=== PATIENT | female | born 1955 | race Caucasian/White ===

== ENCOUNTER 2017-03-24 22:20 | Observation (INO) | payer BC ==
[~2017-03-24] VITALS: Ht 167.6 cm; Wt 80.5 kg
[~2017-03-24 22:20] MED LIST: ASCO500C PO; CALC1TAB PO; ESTR1TAB15 PO; FISH1CAP PO; GARL5000 PO; LOSA1TAB17 PO; MULT-177 PO; SIMV20TA3 PO
[2017-03-24] MEDS ORDERED: ONDANSETRON PF 4 MG/2 ML VIAL. IV ONE (23:00)
[2017-03-24] MEDS ORDERED: IV NORMAL SALINE 1000ML BAG 1,000 ML IV ONE (23:00)
[2017-03-24 23:11] LABS: BASO % 0 % (0-3); EOS % 0 % (0-3); HEMATOCRIT 32.6 % (36.0-47.0); HEMOGLOBIN 11.4 g/dL (12.0-15.5); LYMPH # 1.2 x10^3/uL (1.0-4.8); LYMPH % 12 % (24-48); MEAN CORPUSCULAR HEMOGLOBIN 31 pg (25-35); MEAN CORPUSCULAR HGB CONC 35 g/dL (31-37); MEAN CORPUSCULAR VOLUME 89 fL (79-100); MONO % 1 % (0-9); NEUT % 86 % (31-73); PLATELET COUNT 217 x10^3/uL (140-400); RED BLOOD COUNT 3.65 x10^6/uL (3.50-5.40); RED CELL DISTRIBUTION WIDTH 12.6 % (11.5-14.5); WHITE BLOOD COUNT 9.5 x10^3/uL (4.0-11.0)
[2017-03-24 23:29] LABS: ALBUMIN 3.2 g/dL (3.4-5.0); ALBUMIN/GLOBULIN RATIO 1.1 (1.0-1.7); CALCIUM 8.3 mg/dL (8.5-10.1); CREATININE 0.6 mg/dL (0.6-1.0); GFR 101.3; TOTAL BILIRUBIN 0.5 mg/dL (0.2-1.0); TOTAL PROTEIN 6.2 g/dL (6.4-8.2)
[2017-03-24 23:40] LABS: % BASOS 1 % (0-3); PLT ESTIMATE ADEQUATE (ADEQUATE)
--- NOTE | 2017-03-25 00:07 | PHYS DOC ---
Past Medical History Past Medical History: Arthritis, Diverticulitis, Hypertension, Other Additional Past Medical Histor: High cholesterol, breast cancer Past Surgical History: No Surgical History Alcohol Use: None Drug Use: None Adult General Chief Complaint Chief Complaint: ALTERED MENTAL STATUS HPI HPI Patient is a 61 year old female with history significant for hypertension and breast cancer status post mastectomy on February 05 and is currently on chemotherapy who presents here today secondary to generalized weakness and confusion. Patient has any fevers shakes chills nausea vomiting diarrhea cough cold Raynaud 's abdominal pain or chest pain. Patient reports decreased urinary output. Patient reports her last by mouth intake was approximately 7 PM she reports that she's been drinking a lot with any difficulty. Review of systems Constitutional: Denies fever or chills [] Eyes: Denies change in visual acuity, redness, or eye pain [] All other review systems are negative except as documented in the history of present illness portion. Physical exam Constitutional: Well developed, well nourished, no acute distress, non-toxic appearance. [] HENT: Normocephalic, atraumatic, bilateral external ears normal, oropharynx moist, no oral exudates, nose normal. [] Eyes: conjunctiva normal, no discharge. [] Neck: Normal range of motion, no tenderness, supple, no stridor. [] Cardiovascular:Heart rate regular rhythm, Lungs & Thorax: Bilateral breath sounds clear to auscultation [] Abdomen: Bowel sounds normal, soft, no tenderness, no masses, no pulsatile masses. [] Skin: Warm, dry, Back: No tenderness, Extremities: No tenderness, no cyanosis, Neurologic: Alert and oriented X 3, normal motor function, normal sensory function, no focal deficits noted. [] Psychologic: Affect normal, judgement normal, mood normal. [] Patient's ER workup is significant for sodium of 119, potassium 2.9. In the ED with normal saline 2 L. Assessment and plan This 1-year-old female who presents here today secondary to dehydration and generalized weakness. Patient is hyponatremic with a sodium of 119. A potassium 2.9. I discussed the case with Dr. Combs and he requested that we admit her as an observation for hydration and supplementation of her potassium. Current Medications Current Medications Current Medications Medications (Trade) Dose Ordered Sig/Quirino Start Time Stop Time Status Last Admin Dose Admin Ondansetron HCl (Zofran) 4 mg 1X ONCE 03/24/17 23:00 03/24/17 23:01 DC 03/24/17 23:06 4 MG Potassium Chloride (Klor-Con) 40 meq 1X ONCE 03/25/17 00:15 03/25/17 00:16 Sodium Chloride 1,000 ml @ 1,000 mls/hr 1X ONCE 03/25/17 00:15 03/25/17 01:14 Allergies Allergies Allergies Coded Allergies Type Severity Reaction Last Updated Verified Penicillins Allergy Intermediate hives 10/23/14 No Sulfa (Sulfonamide Antibiotics) Allergy Intermediate hives 10/23/14 No cephalexin Allergy Intermediate hives 10/23/14 No Uncoded Allergies Type Severity Reaction Last Updated Verified macrod Allergy Intermediate hives 10/23/14 Current Patient Data Vital Signs Vital Signs Date Time Temp Pulse Resp B/P (MAP) Pulse Ox O2 Delivery O2 Flow Rate FiO2 03/24/17 23:55 75 27 152/64 (93) 99 Room Air 03/24/17 22:33 97.8 97.8 Lab Values Laboratory Tests Test 03/24/17 22:55 White Blood Count 9.5 x10^3/uL (4.0-11.0) Red Blood Count 3.65 x10^6/uL (3.50-5.40) Hemoglobin 11.4 g/dL (12.0-15.5) L Hematocrit 32.6 % (36.0-47.0) L Mean Corpuscular Volume 89 fL (79-100) Mean Corpuscular Hemoglobin 31 pg (25-35) Mean Corpuscular Hemoglobin Concent 35 g/dL (31-37) Red Cell Distribution Width 12.6 % (11.5-14.5) Platelet Count 217 x10^3/uL (140-400) Neutrophils (%) (Auto) 86 % (31-73) H Lymphocytes (%) (Auto) 12 % (24-48) L Monocytes (%) (Auto) 1 % (0-9) Eosinophils (%) (Auto) 0 % (0-3) Basophils (%) (Auto) 0 % (0-3) Neutrophils # (Auto) 8.2 x10^3uL (1.8-7.7) H Lymphocytes # (Auto) 1.2 x10^3/uL (1.0-4.8) Monocytes # (Auto) 0.1 x10^3/uL (0.0-1.1) Eosinophils # (Auto) 0.0 x10^3/uL (0.0-0.7) Basophils # (Auto) 0.0 x10^3/uL (0.0-0.2) Segmented Neutrophils % 74 % (35-66) H Band Neutrophils % 6 % (0-9) Lymphocytes % 19 % (24-48) L Basophils % 1 % (0-3) Platelet Estimate Adequate (ADEQUATE) Sodium Level 119 mmol/L (136-145) *L Potassium Level 3.0 mmol/L (3.5-5.1) L Chloride Level 84 mmol/L (98-107) L Carbon Dioxide Level 26 mmol/L (21-32) Anion Gap 9 (6-14) Blood Urea Nitrogen 4 mg/dL (7-20) L Creatinine 0.6 mg/dL (0.6-1.0) Estimated GFR (Cockcroft-Gault) 101.3 BUN/Creatinine Ratio 7 (6-20) Glucose Level 163 mg/dL (70-99) H Calcium Level 8.3 mg/dL (8.5-10.1) L Total Bilirubin 0.5 mg/dL (0.2-1.0) Aspartate Amino Transferase (AST) 15 U/L (15-37) Alanine Aminotransferase (ALT) 18 U/L (14-59) Alkaline Phosphatase 90 U/L (46-116) Total Protein 6.2 g/dL (6.4-8.2) L Albumin 3.2 g/dL (3.4-5.0) L Albumin/Globulin Ratio 1.1 (1.0-1.7) Lipase 69 U/L (73-393) L Laboratory Tests 03/24/17 22:55 Laboratory Tests 03/24/17 22:55 EKG EKG [] Radiology/Procedures Radiology/Procedures [] Course & Med Decision Making Course & Med Decision Making Pertinent Labs and Imaging studies reviewed. (See chart for details) [] Dragon Disclaimer Dragon Disclaimer This electronic medical record was generated, in whole or in part, using a voice recognition dictation system. Departure Departure Impression: Primary Impression: Hypokalemia Additional Impression: Hyponatremia Disposition: ADMITTED INPATIENT Admitting Physician: Surjit Stevens Condition: STABLE Referrals: UNKNOWN PCP NAME (PCP) Problem Qualifiers NIKOS JOHNSTON MD Mar 25, 2017 00:07
[2017-03-25] MEDS ORDERED: ONDANSETRON PF 4 MG/2 ML VIAL. IV PRN (00:15)
[2017-03-25] MEDS ORDERED: POTASSIUM CHLORIDE 20 MEQ TABLET.ER. PO ONE (00:15)
[2017-03-25] MEDS ORDERED: IV NORMAL SALINE 1000ML BAG 1,000 ML IV ONE (00:15)
[2017-03-25] MEDS ORDERED: MORPHINE SULFATE 4 MG/ML DISP.SYRIN. IV PRN (00:15)
[2017-03-25 01:22] LABS: BILIRUBIN,URINE NEGATIVE (NEG); GLUCOSE,URINE NEGATIVE (NEG); NITRITE,URINE NEGATIVE (NEG); PH,URINE 6.5; PROTEIN,URINE NEGATIVE (NEG-TRACE); UROBILINOGEN,URINE 0.2 mg/dL (0.2 mg/dL)
[2017-03-25 01:51] LABS: BACTERIA,URINE 0 /HPF (0-FEW); RBC,URINE OCC /HPF (0-2); SQUAMOUS EPITHELIAL CELL,UR OCC /LPF; WBC,URINE OCC /HPF (0-4)
[2017-03-25 02:30] VITALS: BP 147/56
[2017-03-25 03:00] VITALS: BP 142/58
--- NOTE | 2017-03-25 03:54 | ACF ---
Admission Forms Criteria HYPONATREMIA; HYPERNATREMIA; HYPOKALEMIA; HYPERKALEMIA; HYPOCALCEMIA; HYPERCALCEMIA Clinical Indications for Inpatient Care (Place 'X' for any and all applicable criteria): Ongoing inpatient care may be indicated for ANY ONE of the following [G](1)(2)(3 )(5): [X]I. Hyponatremia with ANY ONE of the following: [X]a) Sodium less than 130 mEq/L (mmol/L) (new) (6)(22) [ ]b) Sodium less than 135 mEq/L (mmol/L) with ANY ONE of the following: [ ]i) Severe medical etiology requiring inpatient management (eg, heart failure, hypovolemia) [ ]ii) Altered mental status [ ]iii) Seizures [ ]II. Hypernatremia with ANY ONE of the following: [ ]a) Sodium greater than 155 mEq/L (mmol/L) [ ]b) Sodium greater than 150 mEq/L (mmol/L) with ANY ONE of the following: [ ] i) Altered mental status [ ]ii) Seizures [ ]iii) Severe medical etiology (eg, hypovolemia, diabetes insipidus) [ ]iv) Severe weakness [ ]v) Severe medical etiology (eg, hemolysis, infection, drug overdose) [ ]III. Hypokalemia with ANY ONE of the following: [ ]a) Potassium less than 2.5 mEq/L (mmol/L) despite outpatient and emergency treatment [ ]b) Potassium less than 3.0 mEq/L (mmol/L) with ANY ONE of the following: [ ]i) Weakness [ ]ii) Cardiac abnormality (eg, arrhythmia, conduction disturbance) [ ]iii) Cardiac ischemia [ ]iv) Ileus [ ]v) Ongoing medical cause requiring inpatient management. ( e.g., acute renal wasting, SIADH) [ ]vi) Other severe symptoms [ ] IV. Hyperkalemia with ANY ONE of the following: [ ]a) Potassium greater than 6.5 mEq/L (mmol/L) [ ]b) Potassium greater than 5 mEq/L (mmol/L) with ANY ONE of the following: [ ]i) Severe ECG findings [H] [ ]ii) Acute worsening of renal failure (creatinine greater than 2.5 mg/dL (221 micromoles/L) or significant elevation for age and size) [ ] V. Hypocalcemia with ANY ONE of the following: [ ]a) Calcium less than 7 mg/dL (1.75 mmol/L) despite outpatient and emergency treatment(19) [ ]b) Calcium less than 8 mg/dL (2 mmol/L) with significant symptoms or findings; examples include: [ ]i) Cardiac abnormality (eg, arrhythmia or conduction disturbance) [ ]ii) Altered mental status [ ]iii) Seizures [ ]iv) Breathing difficulty [ ]v) Muscle spasms [ ]. Hypercalcemia with ANY ONE of the following: [ ]a) Calcium greater than 14 mg/dL (3.5 mmol/L) [ ]b) Calcium greater than 12 mg/dL (3 mmol/L) with ANY ONE of the following: [ ]i) Significant dehydration or hypovolemia as indicated by ANY ONE of the following(2): [ ]1. Clinically significant dehydration as indicated by ANY ONE of the following: [ ]A. Acute loss of weight from baseline (5% of body weight in adults, 9% in pediatric patients) [ ]B. Hemodynamic instability [ ]C. Acute renal failure [ ]D. Serum sodium greater than 150 mEq/L (mmol/L) [ ]2) Dehydration that is persistent indicated by ALL of the following: [ ]A. Oral rehydration therapy not tolerated or insufficient to adequately correct dehydration [ ]B. Appropriate intravenous treatment (eg, fluids ) does not readily correct dehydration ie, after 12 to 24 hours of treatment) [ ]ii) Significant symptoms or findings; examples include: [ ]1) Altered mental status [ ]2) Cardiac abnormality (eg, arrhythmia, conduction disturbance) [ ]3) Cardiac abnormality (eg, arrhythmia, conduction disturbance) The original [employer] [facility] content created by [employer] [facility] has been revised. The portions of the content which have been revised are identified through the use of italic text or in bold, and [facility] has neither reviewed nor approved the modified material. All other unmodified content is copyright [facility] [employer] Please see references footnoted in the original [facility] [employer] edition 2016 Admission Criteria Met?: Yes JING CHAO Mar 25, 2017 03:54
[2017-03-25] MEDS ORDERED: ONDA4TAB12 PO (04:04)
[2017-03-25] MEDS ORDERED: LORA0.5T PO (04:04)
[2017-03-25] MEDS ORDERED: LIDO1KIT TP (04:04)
[2017-03-25] MEDS ORDERED: LOSA1TAB7 PO (04:04)
[2017-03-25] MEDS ORDERED: HYDR-2819 PO (04:04)
[2017-03-25] MEDS ORDERED: POLY17PO29 PO (04:04)
[2017-03-25] MEDS ORDERED: PROC10TA2 PO (04:04)
[2017-03-25] MEDS ORDERED: BUPR100T7 PO (04:05)
[2017-03-25] MEDS ORDERED: DEXA4TAB PO (04:05)
--- NOTE | 2017-03-25 06:29 | EKG ---
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
[2017-03-25 07:00] VITALS: BP 137/55
--- NOTE | 2017-03-25 07:43 | RAD ---
Portable chest, 03/24/2017: History: Weakness and fatigue No previous chest radiographs are available at this time for comparison purposes. A left Port-A-Cath extends to the level of the atriocaval junction. The heart size and pulmonary vascularity are normal. No pulmonary infiltrates are seen. There is no evidence of pleural fluid. Surgical clips overlie the lower chest bilaterally. IMPRESSION: No acute cardiopulmonary abnormality is detected.
[2017-03-25] MEDS: IV NORMAL SALINE 1000ML BAG 1,000 ML IV SCH ×2 (08:15→08:24)
[2017-03-25] MEDS: hydroCHLOROthiazide 12.5 MG CAPSULE PO SCH ×2 (10:00→11:00)
[2017-03-25] MEDS ORDERED: LOSARTAN POTASSIUM 50 MG TABLET. PO SCH (10:00)
[2017-03-25] MEDS ORDERED: POLYETHYLENE GLYCOL 3350 17 GM PACKET. PO SCH (10:00)
[2017-03-25] MEDS ORDERED: buPROPion SR 100 MG TABLET.SA. PO SCH (10:00)
[2017-03-25] MEDS ORDERED: LORazepam 0.5 MG TABLET PO PRN (10:15)
[2017-03-25] MEDS ORDERED: ASA/APAP/CAFFEINE 250/250/65MG TABLET. PO PRN (10:15)
[2017-03-25] MEDS ORDERED: PRILOCAINE TP PRN (10:15)
[2017-03-25] MEDS ORDERED: ONDANSETRON ODT 4 MG TAB.RAPDIS. PO PRN (10:15)
[2017-03-25] MEDS ORDERED: HYDROcodone/APAP 5/325MG 1 TAB TABLET PO PRN (10:15)
[2017-03-25] MEDS ORDERED: LIDOCAINE TP PRN (10:15)
[2017-03-25] MEDS ORDERED: PROCHLORPERAZINE 5 MG TABLET. PO PRN ×2 (10:15)
[2017-03-25 10:51] VITALS: BP 115/53
[2017-03-25 11:01] VITALS: BP 115/53
[2017-03-25] MEDS ORDERED: ACETAMINOPHEN 325 MG TABLET. PO PRN (11:30)
[2017-03-25] MEDS ORDERED: FAMOTIDINE 20 MG TABLET. PO SCH (11:30)
[2017-03-25] MEDS ORDERED: DEXAMETHASONE 4 MG TABLET PO SCH (11:30)
[2017-03-25 12:35] LABS: CALCIUM 8.8 mg/dL (8.5-10.1); CREATININE 0.6 mg/dL (0.6-1.0); GFR 101.3
[2017-03-25 12:36] LABS: MAGNESIUM 1.7 mg/dL (1.8-2.4)
[2017-03-25] MEDS ORDERED: FAMO20TA5 PO (12:58)
[2017-03-25] MEDS ORDERED: HEPARIN PF 500 UNIT/5 ML DISP.SYRIN. IV ONE (13:15)
[2017-03-25] MEDS ORDERED: SIMVASTATIN 20 MG TABLET PO SCH (21:00)
--- NOTE | 2017-03-26 20:17 | SSS ---
ADMIT DATE: 03/25/2017 CHIEF COMPLAINT: Electrolyte derangements. HISTORY OF PRESENT ILLNESS: The patient is a 61-year-old woman who had recently undergone bilateral mastectomies and sentinel lymph node dissections for bilateral cancer. She was started on prophylactic chemotherapy on 03/24/2017 with Adriamycin and Cytoxan. At the Cancer Center, she was found with hypokalemia and some dizziness. She also felt quite weak, but denied any fevers, chills, nausea, vomiting, chest pain, shortness of breath or cough. As labs became available to the Cancer Center, a decision was made to give her the chemotherapy and then sent her to the Emergency Room for further workup. In the Emergency Room, her sodium was found 119 (earlier in the morning, it had been 134) as well as low potassium and she was admitted for further monitoring and care. PAST MEDICAL HISTORY: Breast cancer, status post bilateral mastectomies on 02/05/2017, chemotherapy on 03/24/2017, hypertension, high cholesterol, osteoarthritis. FAMILY HISTORY: Negative for breast cancer. SOCIAL HISTORY: She is , living with her . Quit smoking, no alcohol or drug use. ALLERGIES: PENICILLIN, SULFA, NITROFURANTOIN. MEDICATIONS: MAR reconciled with home medications. REVIEW OF SYSTEMS: The patient relates that she actually feels much better today. Denies any dizziness, nausea, vomiting, any pain. Rest of organ system review was negative. PHYSICAL EXAMINATION: VITAL SIGNS: Show a blood pressure of 115/53, heart rate of 84, respiratory rate at 16. She is afebrile. GENERAL: This is an overweight 61-year-old woman, awake, alert, in no acute distress. HEENT: Shows no scleral icterus. NECK: Supple. LUNGS: Clear to auscultation bilaterally. HEART: Regular rate and rhythm. Bilateral mastectomy incisions are well healing. ABDOMEN: Has positive bowel sounds, soft, nontender. EXTREMITIES: Show no edema, no clubbing, no cyanosis. SKIN: Warm, soft and dry. LABORATORY DATA: CBC with a WBC of 9.5, hemoglobin of 11.4, platelets of 217. Chemistries on 03/25/2017 show a sodium of 136, potassium of 4.0, BUN and creatinine of 6 and 0.6, magnesium at 1.7. IMAGING: Chest x-ray obtained in the Emergency Room shows no acute cardiopulmonary abnormality. ASSESSMENT AND PLAN: The patient is a 61-year-old woman with recent diagnosis of breast cancer, started on chemotherapy yesterday. Electrolyte abnormalities were noted with subtle symptoms. She is now much improved symptomatically, and all electrolytes have normalized. I suspect that the sodium obtained in the Emergency Room was incorrect given the prior readings during the day and followup on day of discharge. DISCHARGE DATE: 03/25/2017. DISCHARGE DISPOSITION: To home. DISCHARGE CONDITION: Improved. DISCHARGE INSTRUCTIONS: The patient will follow up in the Oncology Clinic today and receive her Neulasta shot to allow further chemotherapy as planned in 2 weeks. She will follow up with her oncologist as previously arranged. She will see her PCP as needed. JAY SINGLETARY MD DR: UR/nts JOB#: [id number] / [id number] YOLANDA
== END 2017-03-25 14:58 | disposition home or self-care (01) ==
LOC: ER 22:20 → 5 SOUTH 03-25
PROVIDERS: ADMIT Internal Medicine; ATTEND Internal Medicine
DX: E87.6 Hypokalemia (principal); I10 Essential (primary) hypertension; E78.00 Pure hypercholesterolemia, unspecified; M19.90 Unspecified osteoarthritis, unspecified site; Z79.899 Other long term (current) drug therapy; Z87.891 Personal history of nicotine dependence; Z85.3 Personal history of malignant neoplasm of breast; Z90.13 Acquired absence of bilateral breasts and nipples
CPT/HCPCS: 36415; 71010; 80048; 80053; 81001; 83690; 83735; 85007; 85027; 93005; 96361; 96374; 96375; 99285; G0378; J2270; J2405; J7030; J8540; G0379

== ENCOUNTER → 2018-11-15 | Outpatient (CLI) | payer BC ==
[~2018-11-15] MED LIST changes: +BUPR100T7 PO; +DEXA4TAB PO; +FAMO20TA5 PO; +HYDR-2815 PO; +LIDO1KIT TP; +LORA0.5T PO; -LOSA1TAB17 PO; +LOSA1TAB22 PO; +LOSA1TAB7 PO; +ONDA4TAB12 PO; +POLY17PO29 PO; +PROC10TA2 PO
--- NOTE | 2018-11-15 15:42 | RAD ---
EXAM: Lumbar spine, flexion and extension. HISTORY: Pain. COMPARISON: None. FINDINGS: Lateral neutral, flexion and extension views of the lumbar spine are obtained. There is grade 1 anterolisthesis of L4 on L5, measuring 3 mm in neutral position. This minimally decreases with extension. There is slight retrolisthesis of L2 on L3 which does not change between flexion and extension. There is endplate remodeling at multiple levels. There is facet arthropathy predominantly at the mid lower lumbar levels. IMPRESSION: 1. Minimal grade 1 anterolisthesis of L4 and L5, with slight decrease with extension. 2. Minimal retrolisthesis of L2 on L3, without change between flexion and extension. 3. Mild multilevel degenerative change. Electronically signed by: Lolis Gray MD (11/15/2018 3:39 PM) [id number]
== END | disposition home or self-care (01) ==
LOC: RAD 14:51
PROVIDERS: ATTEND Neurological Surgery
DX: M43.16 Spondylolisthesis, lumbar region (principal)
CPT/HCPCS: 72100